=== PATIENT | male | born 1965 | race Caucasian/White ===

== ENCOUNTER 2017-12-01 08:58 | Day surgery (SDC) | payer BC ==
[~2017-12-01] VITALS: Ht 182.9 cm; Wt 111.5 kg
[2017-12-01 09:12] VITALS: BP 130/96; PULSE 59; TEMP 97.7
[2017-12-01] MEDS ORDERED: PRINIVIL40 MG PO (09:13)
[2017-12-01] MEDS ORDERED: ASPIRIN E.C. 8181 MG PO (09:14)
[2017-12-01 10:50] VITALS: BP 139/85; PULSE 71; TEMP 97.4
[2017-12-01 11:00] VITALS: BP 142/105; PULSE 70
[2017-12-01 11:15] VITALS: BP 138/87; PULSE 71
[2017-12-01 11:30] VITALS: BP 130/70; PULSE 76
== END 2017-12-01 11:45 | disposition home or self-care (01) ==
LOC: SDCO 08:58
DX: Z12.11 Encounter for screening for malignant neoplasm of colon (principal); K57.30 Diverticulosis of large intestine without perforation or abscess without bleeding; I10 Essential (primary) hypertension
CPT/HCPCS: OP; J2250; J3010; J7030

== ENCOUNTER → 2018-05-03 | Outpatient (CLI) | payer BC ==
[~2018-05-03] VITALS: Ht 182.9 cm; Wt 113.0 kg
[~2018-05-03] MED LIST: ALEVE 220MG220 MG PO; ASPIRIN E.C. 8181 MG PO; MOTRIN 400400 MG/TAB PO; NORCO 325 MG-51 TAB PO; PRINIVIL40 MG PO
[2018-05-03 14:16] VITALS: BP 159/93; PULSE 70
[2018-05-03 15:00] VITALS: BP 171/102; PULSE 84
[2018-05-03 15:15] VITALS: BP 154/95
== END ==
LOC: COL.RAD 13:30
DX: M51.26 Other intervertebral disc displacement, lumbar region (principal)
CPT/HCPCS: J3301